=== PATIENT | male | born 1995 | race Caucasian/White ===

== ENCOUNTER 2022-02-10 19:54 | Emergency (ER) | payer OTHER ==
[~2022-02-10] VITALS: Ht 182.9 cm; Wt 65.8 kg
[2022-02-10 19:56] VITALS: BP 122/55
--- NOTE | 2022-02-10 20:19 | NUR ---
PA AVILA AT BEDSIDE ASSESSING PT
[2022-02-10] MEDS ORDERED: KETOROLAC 30 MG/ML VIAL IM ONE (20:25)
--- NOTE | 2022-02-10 20:38 | NUR ---
XRAY AT BEDSIDE
--- NOTE | 2022-02-10 20:53 | NUR ---
MARK AVILA AT BEDSIDE
[2022-02-10] MEDS ORDERED: ACET-8386 PO (20:57)
[2022-02-10] MEDS ORDERED: IBUP-2213 PO (20:58)
--- NOTE | 2022-02-10 20:58 | NUR ---
26 Y/O MAALE BIBS FROM HOME, C/O LEFT FOOT PAIN S/P MECH FALL. PT STATES HE WAS RUNNING ON A TRAIL AND LANDED ON HIS FOOT WRONG. CMS INTACT, BRUISING PRESENT, NO DEFORMITIES. PT IS ABLE TO AMBULATE FOR SHORT DISTANCES. NO HEAD/NECK/BACK INJURY. HX: PSYCH NKA MED; SEROQUIL, COMPAZINE
--- NOTE | 2022-02-10 21:44 | NUR ---
PER PA ORDERS, A 4INCH FIBERGLASS SPLINT WAS PLACED ON THE PTS LEFT ANKLE IN THE FORM OF A POSTERIOR SHORT ANKLE SPLINT. SPLINT WAS WRAPPED IN X2 CHRISTIAN WRAP. +CMS BEFORE/AFTER APPLICATION. PT DID NOT COMPLAIN OF ANY PAIN OF DISCOMFORT AT THIS TIME. ERMD NOTIFIED.
[2022-02-10 22:19] VITALS: BP 126/64
--- NOTE | 2022-02-10 22:20 | NUR ---
Patient discharged with v/s stable. Written and verbal after care instructions given and explained. Patient alert, oriented and verbalized understanding of instructions. Ambulatory with steady gait. All questions addressed prior to discharge. ID band removed. Patient advised to follow up with PMD. Rx of IBUPROFEN AND NORCO (5-325) given. Patient educated on indication of medication including possible reaction and side effects. Opportunity to ask questions provided and answered. VSS, A/OX4, UNLABORED BREATHING, AMULATORY, AND CALM DEMEANOR.
== END 2022-02-10 22:21 | disposition home or self-care (01) ==
LOC: MED 19:54
DX: M77.32 Calcaneal spur, left foot (principal); Z79.899 Other long term (current) drug therapy
CPT/HCPCS: 29515; 73630; 96372; 99283; J1885; Q0092